=== PATIENT | male | born 1975 | race African-American/Black ===

== ENCOUNTER 2024-05-03 02:32 | Inpatient (IN) | payer BC, OTHER ==
[2024-05-03 03:25] VITALS: BMI 31.1
[2024-05-03] MEDS ORDERED: Ondansetron ODT 4 MG TAB PO PRN (03:56)
[2024-05-03] MEDS ORDERED: Acetaminophen 325 MG TAB PO PRN (03:56)
[2024-05-03] MEDS ORDERED: Acetaminophen 650 MG Suppository PR PRN (03:56)
[2024-05-03] MEDS ORDERED: Ondansetron PF 4 MG/2 ML Vial IVP PRN (03:56)
[2024-05-03] MEDS: Sodium Chloride 0.9% 1,000 ML IV SCH (04:46)
[2024-05-03] MEDS: Morphine 4 MG/ML VIAL SLOW IVP PRN ×3 (04:47→22:27)
[2024-05-03 08:02] LABS: Hemoglobin A1c 5.8 % (4.0-6.0)
[2024-05-03 08:15] LABS: ALT (SGPT) 53 U/L (8-55); AST (SGOT) 25 U/L (5-34); Albumin 3.5 g/dL (3.5-5.0); Alkaline Phosphatase 64 U/L (40-110); Anion Gap 12 mmol/L (10-20); BUN (Urea Nitrogen) 8 mg/dL (8.9-20.6); Bilirubin, Total 0.6 mg/dL (0.2-1.2); Calc. Creatinine Clearance 124 mL/min (70-130); Calcium 8.5 mg/dL (7.8-10.44); Carbon Dioxide 25 mmol/L (22-29); Chloride 104 mmol/L (98-107); Estimated GFR 99; Glucose 106 mg/dL (70-105); Potassium 3.6 mmol/L (3.5-5.1); Protein, Total 6.5 g/dL (6.0-8.3); Sodium 137 mmol/L (136-145)
[2024-05-03] MEDS: Enoxaparin 40 MG (0.4 mL) SYRINGE SC SCH (09:01)
[2024-05-03] MEDS ORDERED: Albuterol 2.5 MG (3 mL) NEB NEB PRN (14:43)
[2024-05-03] MEDS: hydrALAZINE 25 MG TAB PO SCH (15:09)
[2024-05-03] MEDS: Ketorolac Tromethamine 30 MG (1 mL) VIAL IVP SCH ×2 (15:09→21:19)
[2024-05-03] MEDS: Baclofen 10 MG TAB PO SCH (21:17)
[2024-05-03] MEDS: cloNIDine 0.2 MG TAB PO SCH (21:17)
[2024-05-03] MEDS: Pregabalin 75 MG CAP PO SCH (21:18)
[2024-05-03] MEDS: Atorvastatin Calcium 20 MG TAB PO SCH (21:18)
[2024-05-04 05:29] LABS: #Basophils Less than 0.03 10x3/uL (0.0-0.2); %Basophils 0.6 % (0.0-1.0); %Eosinophils 2.5 % (0.0-10.0); %Lymphocytes 39.1 % (21.0-51.0); %Monocytes 9.6 % (0.0-10.0); %Neutrophils 47.9 % (42.0-75.0); Hematocrit 37.3 % (42.0-52.0); Hemoglobin 12.2 g/dL (14.0-18.0); Mean Corpuscular HGB CONC 32.7 g/dL (32.0-36.0); Mean Corpuscular Volume 85.7 fL (78.0-98.0); Mean Platelet Volume 11.8 fL (7.4-10.4); Platelet Count 198 10x3/uL (130-400); RBC Distribution Width 13.8 % (11.5-14.5); Red Blood Cell (RBC) Count 4.35 mill/uL (4.70-6.10)
[2024-05-04 05:42] LABS: Anion Gap 9 mmol/L (10-20); BUN (Urea Nitrogen) 6 mg/dL (8.9-20.6); Calc. Creatinine Clearance 124 mL/min (70-130); Calcium 8.5 mg/dL (7.8-10.44); Carbon Dioxide 27 mmol/L (22-29); Chloride 104 mmol/L (98-107); Estimated GFR 99; Glucose 99 mg/dL (70-105); Lipase 16 U/L (8-78); Potassium 3.9 mmol/L (3.5-5.1); Sodium 136 mmol/L (136-145)
[2024-05-04] MEDS: Amlodipine 10 MG TAB PO SCH (08:11)
[2024-05-04] MEDS: Multivitamin W/ Minerals 1 TAB PO SCH (08:12)
[2024-05-04] MEDS: Pregabalin 75 MG CAP PO SCH (08:12)
[2024-05-04] MEDS: Pancrelipase DR 12,000 1 CAP PO SCH (08:12)
[2024-05-04] MEDS ORDERED: Pancrelipase DR 12,000 1 CAP PO SCH (09:00)
[2024-05-04 12:02] VITALS: BP 129/84; TEMP 98.1
== END 2024-05-04 13:53 | disposition home or self-care (01) | DRG 440 ==
LOC: T4-A 03:11
PROVIDERS: ADMIT Student in an Organized Health Care Education/Training Program; ATTEND Family Medicine
DX: K85.90 Acute pancreatitis without necrosis or infection, unspecified (principal); K86.1 Other chronic pancreatitis; I10 Essential (primary) hypertension; Z79.899 Other long term (current) drug therapy; E78.1 Pure hyperglyceridemia; Z85.46 Personal history of malignant neoplasm of prostate
CPT/HCPCS: 36415; 71045; 74177; 76705; 80048; 80053; 80307; 83036; 83690; 84478; 84484; 85025; 93005; 96374; 96375; 96376; J1650; J1885; J2270; J2272; J2405; J7030

== ENCOUNTER 2025-07-02 10:21 | Outpatient (CLI) | payer OTHER | END 2025-07-02 10:22 | disposition home or self-care (01) | LOC: MRI 10:21 | PROVIDERS: ATTEND Nurse Practitioner | DX: M47.26 Other spondylosis with radiculopathy, lumbar region (principal); M51.16 Intervertebral disc disorders with radiculopathy, lumbar region; M51.17 Intervertebral disc disorders with radiculopathy, lumbosacral region; M47.27 Other spondylosis with radiculopathy, lumbosacral region; M48.061 Spinal stenosis, lumbar region without neurogenic claudication; M48.07 Spinal stenosis, lumbosacral region; M47.814 Spondylosis without myelopathy or radiculopathy, thoracic region | CPT/HCPCS: 72146; 72148 ==